=== PATIENT | male | born 1960 | race Caucasian/White ===

== ENCOUNTER 2022-03-08 08:30 | Inpatient (IN) | payer BC ==
[2022-03-08 10:33] LABS: Hemoglobin 14.6 g/dL (13.5-17.5); Mean Corpuscular HGB CONC 34.3 g/dL (32.0-36.0); Mean Corpuscular Hemoglobin 30.4 pg (27.0-33.0); Mean Corpuscular Volume 88.8 fl (81.2-95.1); Mean Platelet Volume 10.5 fl (7.4-10.4); Platelet Count 239 10x3/uL (150-450); RBC Distribution Width 12.9 % (11.5-14.5); White Blood Cell (WBC) Count 8.9 10x3/uL (3.5-10.5)
[2022-03-08 10:40] LABS: Anion Gap 16 mmol/L (10-20); BUN (Urea Nitrogen) 18 mg/dL (8.4-25.7); Calc. Creatinine Clearance 0 mL/min (70-130); Calcium 9.2 mg/dL (7.8-10.44); Carbon Dioxide 22 mmol/L (23-31); Chloride 105 mmol/L (98-107); Estimated GFR 101; Glucose 127 mg/dL (80-115); Potassium 4.3 mmol/L (3.5-5.1); Sodium 139 mmol/L (136-145)
[2022-03-11] MEDS ORDERED: Lidocaine 1% MPF 2 ML VIAL ONE (06:24)
[2022-03-11] MEDS ORDERED: Midazolam HCl 2 mg/2 ml Vial ONE ×3 (06:27→10:02)
[2022-03-11] MEDS ORDERED: fentaNYL Citrate/PF 100 MCG/2 ML SYRINGE ONE (06:27)
[2022-03-11] MEDS ORDERED: Bupivacaine PF 0.5% 30 ML VIAL ONE (06:29)
[2022-03-11] MEDS ORDERED: Dexamethasone 4 mg/ml Vial ONE (06:29)
[2022-03-11] MEDS ORDERED: Albumin 5% 500 ML ONE (06:29)
[2022-03-11] MEDS ORDERED: EPINEPHrine 1 MG/ML AMP ONE (06:29)
[2022-03-11] MEDS ORDERED: Heparin 10,000 UNITS/1 ML VIAL 30,000 UNITS in Sodium Chloride 0.9% 1,000 ML FS SCH (07:15)
[2022-03-11] MEDS ORDERED: Sodium Chloride 0.9% 100 ML ONE (07:26)
[2022-03-11] MEDS ORDERED: CEFAZOLIN 2 GM VIAL ONE (07:26)
[2022-03-11] MEDS ORDERED: Cardioplegic Soln 1,000 ML BAG ONE (07:30)
[2022-03-11] MEDS ORDERED: Vecuronium 10 MG VIAL ONE (07:30)
[2022-03-11] MEDS ORDERED: Nitroglycerin 50 MG/250 ML BOT ONE (07:30)
[2022-03-11] MEDS ORDERED: Heparin 5,000 UNITS/ML VIAL ONE (07:30)
[2022-03-11] MEDS ORDERED: Lidocaine 2% PF 100 mg/5 ml Syringe ONE (07:30)
[2022-03-11] MEDS ORDERED: Calcium Chloride 1 GM/10 ML Abboject SYRINGE ONE (07:30)
[2022-03-11] MEDS ORDERED: Sodium Bicarb 50 MEQ/50 ML Abboject 8.4% SYRINGE ONE (07:30)
[2022-03-11] MEDS ORDERED: Aminocaproic Acid 5 GM/20 ML VIAL ONE (07:30)
[2022-03-11] MEDS ORDERED: Magnesium Sulfate 1 GM/2 ML VIAL ONE (07:30)
[2022-03-11] MEDS ORDERED: Heparin 30,000 units/30 ml VIAL ONE (07:30)
[2022-03-11] MEDS ORDERED: DOPamine 400 MG/10 ML VIAL ONE (07:30)
[2022-03-11] MEDS ORDERED: Protamine Sulfate 250 MG/25 ML VIAL ONE (07:30)
[2022-03-11] MEDS ORDERED: Papaverine 60 MG/2 ML VIAL ONE (07:30)
[2022-03-11] MEDS ORDERED: Mannitol 12.5 GM/50 ML ONE (07:30)
[2022-03-11] MEDS ORDERED: Phenylephrine 10 MG/ML VIAL ONE (07:30)
[2022-03-11] MEDS ORDERED: Thrombin 5000 UNITS/5 ML VIAL ONE (07:30)
[2022-03-11] MEDS ORDERED: Ondansetron PF 4 MG/2 ML Vial ONE (07:30)
[2022-03-11] MEDS ORDERED: PROPOFOL 200 MG/20 ML VIAL ONE (07:30)
[2022-03-11] MEDS ORDERED: D5 1/2 NS w/20 mEq KCL 1,000 ML IV SCH (11:05)
[2022-03-11] MEDS ORDERED: Ondansetron PF 4 MG/2 ML Vial IVP PRN (11:05)
[2022-03-11] MEDS ORDERED: Promethazine HCl 25 MG/ML VIAL IM PRN (11:05)
[2022-03-11] MEDS ORDERED: Potassium Chloride 20 MEQ/100 ML PREMIX BAG IVPB PRN (11:05)
[2022-03-11] MEDS ORDERED: Fentanyl 100 MCG/2 ML VIAL SLOW IVP PRN (11:05)
[2022-03-11] MEDS ORDERED: traMADol HCl 50 MG TAB PO PRN (11:05)
[2022-03-11] MEDS ORDERED: Mag-Al 1200 mg/1200 mg/30 ML UDCUP PO PRN (11:05)
[2022-03-11] MEDS ORDERED: Morphine 2 MG/ML VIAL SLOW IVP PRN (11:05)
[2022-03-11] MEDS ORDERED: Nitroglycerin 50 MG/250 ML BOT 250 ML IVPB PRN (11:05)
[2022-03-11] MEDS ORDERED: hydrALAZINE 20 MG/ML VIAL SLOW IVP PRN (11:05)
[2022-03-11] MEDS ORDERED: Acetaminophen 325 MG TAB PO PRN (11:05)
[2022-03-11] MEDS ORDERED: Norepinephrine 8 MG/0.9% NS 250 ML IVPB PRN (11:05)
[2022-03-11] MEDS ORDERED: Hetastarch 6% 500 ML 500 ML IVPB PRN (11:05)
[2022-03-11] MEDS ORDERED: Bisacodyl 5 MG TAB PO PRN (11:05)
[2022-03-11] MEDS ORDERED: Magnesium 2 GM/50 ML(in water) 2 GM in Premix Bag 1 BAG IVPB SCH (11:05)
[2022-03-11] MEDS ORDERED: DOPamine 400 MG/D5W 250 ML 250 ML IVPB PRN (11:05)
[2022-03-11] MEDS ORDERED: Guaifenesin DM 100-10/5 ML UDCUP PO PRN (11:05)
[2022-03-11] MEDS ORDERED: Bisacodyl 10 MG SUPP PR PRN (11:05)
[2022-03-11] MEDS ORDERED: Nitroglycerin 50 MG/250 ML BOT 250 ML ONE (11:07)
[2022-03-11 11:08] LABS: Actual Bicarbonate (HCO3a) 23.1 mEq/L (22-28); Base Excess (BEa) -2.3 mEq/L (-2.0 to +3.0); CO2 Tension 42.5 mmHg (35.0-45.0); Calcium, Ionized (arterial) 1.15 mmol/L (1.12-1.30); Carboxyhemoglobin (COHb) 0.4 gm% (0.0-3.0); Hemoglobin (Hb) 13.3 g/dL (14.0-18.0); O2 Tension (PaO2), arterial 89.1 mmHg (> 80.0); Potassium - ABG Lab 4.63 mmol/L (3.70-5.30); pH, Arterial 7.35 (7.35-7.45)
[2022-03-11] MEDS ORDERED: Morphine 4 MG/ML VIAL ONE (11:08)
[2022-03-11 11:09] LABS: ALV-art Gradient 285.575 mmHg (0-20); Puncture Site Arterial Line
[2022-03-11] MEDS ORDERED: HUMULIN R 100 UNITS in Sodium Chloride 0.9% 100 ML IVPB SCH (11:15)
[2022-03-11] MEDS ORDERED: Dextrose 5% in Water 1,000 ML IV PRN (11:15)
[2022-03-11] MEDS ORDERED: Dextrose 50% Abboject 50 ML SYRINGE SLOW IVP PRN (11:15)
[2022-03-11 11:27] LABS: #Eosinphils 0.2 thou/uL (0.0-0.7); #Lymphocytes 1.3 thou/uL (1.20-3.40); #Monocytes 0.1 thou/uL (0.11-0.59); #Neutrophils 10.9 thou/uL (1.40-6.50); %Basophils 0.1 % (0.0-1.0); %Eosinophils 1.3 % (0.0-10.0); %Lymphocytes 10.5 % (21.0-51.0); %Monocytes 0.8 % (0.0-10.0); %Neutrophils 87.2 % (42.0-75.0); Hemoglobin 13.2 g/dL (14.0-18.0); Mean Corpuscular HGB CONC 33.5 g/dL (32.0-36.0); Mean Corpuscular Hemoglobin 31.6 pg (27.0-31.0); Mean Corpuscular Volume 94.5 fL (78.0-98.0); Platelet Count 136 thou/uL (130-400); RBC Distribution Width 12.1 % (11.5-14.5); Red Blood Cell (RBC) Count 4.18 mill/uL (4.70-6.10); White Blood Cell (WBC) Count 12.5 thou/uL (4.8-10.8)
[2022-03-11 11:38] LABS: INR-International Normal Ratio 1.3; PTT 33.2 sec (22.9-36.1); Prothrombin Time 16.1 sec (12.0-14.7)
[2022-03-11] MEDS: Insulin Regular 300 UNITS/3 ML VIAL SC PRN ×3 (11:42→20:00)
[2022-03-11] MEDS: Ketorolac Tromethamine 30 MG/ML VIAL IVP SCH ×3 (11:51→23:30)
[2022-03-11 12:08] LABS: Anion Gap 13 mmol/L (10-20); BUN (Urea Nitrogen) 19 mg/dL (8.4-25.7); Calc. Creatinine Clearance 110 mL/min (70-130); Calcium 8.1 mg/dL (7.8-10.44); Carbon Dioxide 22 mmol/L (23-31); Chloride 111 mmol/L (98-107); Estimated GFR 99; Glucose 165 mg/dL (80-115); Potassium 4.7 mmol/L (3.5-5.1); Sodium 141 mmol/L (136-145)
[2022-03-11 13:30] LABS: Actual Bicarbonate (HCO3a) 20.9 mEq/L (22-28); Base Excess (BEa) -3.4 mEq/L (-2.0 to +3.0); CO2 Tension 35.2 mmHg (35.0-45.0); Calcium, Ionized (arterial) 1.14 mmol/L (1.12-1.30); Carboxyhemoglobin (COHb) 0.4 gm% (0.0-3.0); Hemoglobin (Hb) 13.4 g/dL (14.0-18.0); O2 Tension (PaO2), arterial 76.5 mmHg (> 80.0); Potassium - ABG Lab 4.18 mmol/L (3.70-5.30); pH, Arterial 7.39 (7.35-7.45)
[2022-03-11 13:31] LABS: Puncture Site Arterial Line
[2022-03-11] MEDS ORDERED: ceFAZolin 2 GM/Dextrose 50 ML 2 GM in Premix Bag 1 BAG IVPB SCH (15:00)
[2022-03-11] MEDS: CEFAZOLIN 2 GM in Sodium Chloride 0.9% 100 ML IVPB SCH ×2 (15:34→23:29)
[2022-03-11 16:39] LABS: Hemoglobin 12.9 g/dL (14.0-18.0)
[2022-03-11 16:54] LABS: Potassium 4.2 mmol/L (3.5-5.1)
[2022-03-11] MEDS: Famotidine/PF 20 mg/2ml Vial SLOW IVP SCH (21:00)
[2022-03-11] MEDS: Fentanyl 100 MCG/2 ML VIAL SLOW IVP PRN (21:07)
[2022-03-11] MEDS: Atorvastatin Calcium 40 MG TAB PO SCH (21:10)
[2022-03-12] MEDS: Insulin Regular 300 UNITS/3 ML VIAL SC PRN ×2 (00:10→04:22)
[2022-03-12 04:14] LABS: #Lymphocytes 1.1 thou/uL (1.20-3.40); #Monocytes 1.7 thou/uL (0.11-0.59); #Neutrophils 16.2 thou/uL (1.40-6.50); %Basophils 0.3 % (0.0-1.0); %Eosinophils 0.2 % (0.0-10.0); %Lymphocytes 5.8 % (21.0-51.0); %Monocytes 8.9 % (0.0-10.0); %Neutrophils 84.8 % (42.0-75.0); Hemoglobin 11.4 g/dL (14.0-18.0); Mean Corpuscular Hemoglobin 32.2 pg (27.0-31.0); Mean Corpuscular Volume 94.7 fL (78.0-98.0); Mean Platelet Volume 7.9 fL (7.4-10.4); Platelet Count 132 thou/uL (130-400); Red Blood Cell (RBC) Count 3.56 mill/uL (4.70-6.10)
[2022-03-12] MEDS: Fentanyl 100 MCG/2 ML VIAL SLOW IVP PRN ×2 (04:20→16:12)
[2022-03-12 04:39] LABS: Anion Gap 11 mmol/L (10-20); BUN (Urea Nitrogen) 16 mg/dL (8.4-25.7); Calc. Creatinine Clearance 110 mL/min (70-130); Carbon Dioxide 25 mmol/L (23-31); Chloride 110 mmol/L (98-107); Estimated GFR 99; Glucose 165 mg/dL (80-115); Sodium 142 mmol/L (136-145)
[2022-03-12] MEDS: Ketorolac Tromethamine 30 MG/ML VIAL IVP SCH ×3 (06:18→18:31)
[2022-03-12 06:52] VITALS: BMI 29.1
[2022-03-12] MEDS: CEFAZOLIN 2 GM in Sodium Chloride 0.9% 100 ML IVPB SCH (08:31)
[2022-03-12] MEDS: Famotidine/PF 20 mg/2ml Vial SLOW IVP SCH (08:32)
[2022-03-12] MEDS ORDERED: Magnesium 2 GM/50 ML(in water) 2 GM in Premix Bag 1 BAG IVPB SCH (09:00)
[2022-03-12] MEDS ORDERED: Aspirin 325 MG TAB PO SCH (09:00)
[2022-03-12] MEDS ORDERED: Guaifenesin DM 100-10/5 ML UDCUP PO PRN (09:52)
[2022-03-12] MEDS ORDERED: Nitroglycerin 0.4 MG TAB (25 Tab Bottle) SL PRN (09:52)
[2022-03-12] MEDS ORDERED: Zolpidem Tartrate 5 MG TAB PO PRN (09:52)
[2022-03-12] MEDS: traMADol HCl 50 MG TAB PO PRN (10:02)
[2022-03-12] MEDS: Atorvastatin Calcium 40 MG TAB PO SCH (21:22)
[2022-03-13] MEDS: Ketorolac Tromethamine 30 MG/ML VIAL IVP SCH ×5 (00:27→23:53)
[2022-03-13] MEDS: traMADol HCl 50 MG TAB PO PRN ×2 (04:46→21:21)
[2022-03-13] MEDS: Furosemide 40 MG TAB PO SCH (08:36)
[2022-03-13] MEDS: Potassium Chloride 10 MEQ TAB PO SCH (08:36)
[2022-03-13] MEDS: Aspirin 325 mg Enteric Coated Tablet PO SCH (08:36)
[2022-03-13] MEDS: Polyethylene Glycol 3350 17 GM Packet PO SCH (08:36)
[2022-03-13] MEDS: Atorvastatin Calcium 40 MG TAB PO SCH (21:20)
[2022-03-14] MEDS: Ketorolac Tromethamine 30 MG/ML VIAL IVP SCH ×2 (05:30→11:56)
[2022-03-14] MEDS: Aspirin 325 mg Enteric Coated Tablet PO SCH (09:37)
[2022-03-14] MEDS: Potassium Chloride 10 MEQ TAB PO SCH (09:37)
[2022-03-14] MEDS: Furosemide 40 MG TAB PO SCH (09:37)
[2022-03-14] MEDS: Polyethylene Glycol 3350 17 GM Packet PO SCH (09:43)
[2022-03-14 12:42] VITALS: BP 137/79; TEMP 98.4
== END 2022-03-14 12:35 | disposition home or self-care (01) | DRG 236 ==
LOC: SURG A 03-11 05:59 → CCU 03-11 09:54 → 2NO 03-12 19:41
PROVIDERS: ADMIT Thoracic Surgery (Cardiothoracic Vascular Surgery); ATTEND Thoracic Surgery (Cardiothoracic Vascular Surgery)
PROC: 021209W Bypass Coronary Artery, Three Arteries from Aorta with Autologous Venous Tissue, Open Approach (ICD-10-PCS; principal; 2022-03-11)
PROC: 02100Z9 Bypass Coronary Artery, One Artery from Left Internal Mammary, Open Approach (ICD-10-PCS; 2022-03-11)
PROC: 06BQ0ZZ Excision of Left Saphenous Vein, Open Approach (ICD-10-PCS; 2022-03-11)
PROC: 5A1221Z Performance of Cardiac Output, Continuous (ICD-10-PCS; 2022-03-11)
PROC: 02L70CK Occlusion of Left Atrial Appendage with Extraluminal Device, Open Approach (ICD-10-PCS; 2022-03-11)
PROC: 3E033XZ Introduction of Vasopressor into Peripheral Vein, Percutaneous Approach (ICD-10-PCS; 2022-03-11)
DX: I25.10 Atherosclerotic heart disease of native coronary artery without angina pectoris (principal); Z20.822 Contact with and (suspected) exposure to COVID-19; I10 Essential (primary) hypertension; E78.2 Mixed hyperlipidemia; Z79.899 Other long term (current) drug therapy; Z78.1 Physical restraint status; Z79.82 Long term (current) use of aspirin; Z90.49 Acquired absence of other specified parts of digestive tract; Z98.890 Other specified postprocedural states; Z82.49 Family history of ischemic heart disease and other diseases of the circulatory system; Z28.310 Unvaccinated for COVID-19
CPT/HCPCS: 36416; 71045; 80048; 82805; 85025; 85027; 85610; 85730; 86850; 86900; 86901; 87811; 93005; 93010; 93798; 94002; 94150; 97139; C1751; J0171; J0690; J1100; J1265; J1642; J1644; J1815; J1885; J2001; J2150; J2250; J2270; J2370; J2405; J2440; J2704; J2720; J3010; J3370; J3475; J3480; J3490; P9045; S0017; S0020; S0028